=== PATIENT | male | born 1970 | race Caucasian/White ===

== ENCOUNTER → 2023-04-12 | Outpatient (CLI) | payer OTHER, MEDICARE | END | disposition home or self-care (01) | LOC: RAH 12:27 | PROVIDERS: ATTEND Physical Medicine & Rehabilitation | DX: M51.36 Other intervertebral disc degeneration, lumbar region (principal) | CPT/HCPCS: 72114 ==

== ENCOUNTER → 2023-04-30 | Outpatient (CLI) | payer OTHER, MEDICARE | END | disposition home or self-care (01) | LOC: RAH 12:44 | PROVIDERS: ATTEND Physical Medicine & Rehabilitation | DX: M48.02 Spinal stenosis, cervical region (principal); M47.812 Spondylosis without myelopathy or radiculopathy, cervical region | CPT/HCPCS: 72125 ==

== ENCOUNTER → 2023-12-17 | Outpatient (CLI) | payer OTHER, MEDICARE | END | disposition home or self-care (01) | LOC: RAH 10:07 | PROVIDERS: ATTEND Pain Medicine Interventional Pain Medicine | DX: M47.26 Other spondylosis with radiculopathy, lumbar region (principal); M54.2 Cervicalgia; M48.03 Spinal stenosis, cervicothoracic region | CPT/HCPCS: 72040; 72100 ==

== ENCOUNTER → 2025-04-17 | Outpatient (CLI) | payer OTHER, MEDICARE ==
--- NOTE | 2025-04-17 13:50 | HMCIMG ---
MR SHOULDER RIGHT WO HISTORY: Superior glenoid labral lesion of right shoulder COMPARISON: None TECHNIQUE: MRI of the right shoulder was performed utilizing multiple pulse sequences in axial, coronal and sagittal planes. Patient was not given contrast through intravenous route. FINDINGS: Bone bruise (microtrabecular fracture) is seen involving the superolateral aspect of the humeral head. Hypertrophic degenerative changes are seen of the acromioclavicular joint. There is downward sloping of acromion in a medial to lateral direction encroaching upon the rotator cuff tendon and muscles. There is rotator cuff tendinosis. There are findings suggestive of rotator cuff tendon tear with tendinous gap of 7.6 mm. Small amount of fluid is seen in the subacromial-subdeltoid bursal complex. The glenoid labrum is intact. There is fluid noted in the bicipital tendon sheath suggestive of sinusitis. Bicipital tendon is seen within its groove. Tiny joint effusion is seen. IMPRESSION: 1. Findings suggestive of rotator cuff tendon tear with tendinous gap of 7.6 millimeter. Small amount of fluid is seen in the subacromial-subdeltoid bursal complex.
== END | disposition home or self-care (01) ==
LOC: RAH 04-12 13:47
PROVIDERS: ATTEND Student in an Organized Health Care Education/Training Program
DX: S40.021A Contusion of right upper arm, initial encounter (principal); S43.431A Superior glenoid labrum lesion of right shoulder, initial encounter; M19.011 Primary osteoarthritis, right shoulder; M67.813 Other specified disorders of tendon, right shoulder; M25.411 Effusion, right shoulder; X58.XXXA Exposure to other specified factors, initial encounter; Y93.89 Activity, other specified; Y92.89 Other specified places as the place of occurrence of the external cause; Y99.8 Other external cause status
CPT/HCPCS: 73221